=== PATIENT | female | born 1960 | race Caucasian/White ===

== ENCOUNTER 2017-12-12 08:30 | Outpatient (RCR) | payer OTHER, SELFPAY | END 2017-12-25 23:59 | LOC: NS 08:30 | PROVIDERS: Family Provider Family Medicine; PCP Family Medicine; Visit Provider Obstetrics & Gynecology | DX: R63.5 Abnormal weight gain (principal); Z68.32 Body mass index [BMI] 32.0-32.9, adult; Z71.3 Dietary counseling and surveillance | CPT/HCPCS: 97803 ==

== ENCOUNTER 2018-01-16 08:30 | Outpatient (RCR) | payer OTHER, SELFPAY ==
[2017-09-12 09:33] VITALS: BMI 32.4
[2017-09-12 11:21] VITALS: BP 145/79
== END 2018-01-22 23:59 ==
LOC: NS 08:30
PROVIDERS: Family Provider Family Medicine; PCP Family Medicine; Visit Provider Obstetrics & Gynecology
DX: R63.5 Abnormal weight gain (principal); Z68.32 Body mass index [BMI] 32.0-32.9, adult
CPT/HCPCS: 97803

== ENCOUNTER 2018-02-18 11:30 | Outpatient (RCR) | payer OTHER, SELFPAY | END 2018-02-22 23:59 | LOC: NS 11:30 | PROVIDERS: Family Provider Family Medicine; PCP Family Medicine; Visit Provider Obstetrics & Gynecology | DX: R63.5 Abnormal weight gain (principal); Z68.32 Body mass index [BMI] 32.0-32.9, adult; Z71.3 Dietary counseling and surveillance | CPT/HCPCS: 97803 ==

== ENCOUNTER → 2018-02-26 08:56 | Outpatient (CLI) | payer OTHER, SELFPAY ==
--- NOTE | 2018-02-26 08:59 | BI_ITS ---
MAMMOGRAPHY - BILATERAL SCREENING REASON FOR EXAM: Female, 58 years old. Routine annual screening examination. PERTINENT HISTORY: Aunt with breast cancer. TECHNIQUE: Digital bilateral breast alma delia (3D mammographic acquisition) in the CC and MLO projections. 2-D mediolateral oblique (MLO) and craniocaudad (CC) views of both breasts were obtained. CAD: Full Field Digital Mammography with Computer Added Detection was performed. COMPARISON: Comparison is made with prior study dated February 15, 2017 and February 15, 2016. FINDINGS: Breast Composition: The breasts are heterogeneously dense, which may obscure small masses. There are no dominant masses or suspicious calcifications. No other significant abnormalities are identified. There has been no significant change since the prior study. BI/SCREENING MAMM (CAD), BILAT IMPRESSION: Stable bilateral screening mammogram. Yearly follow-up mammogram recommended. (A) ASSESSMENT CATEGORY: BIRADS Category 1: Negative. A letter regarding these results will be sent to the patient by the facility within 30 days. Approximately 10% of breast cancers are not detected by mammography. A normal mammogram should not delay biopsy of a clinically suspicious abnormality. [id number] Electronically Signed: Benny Lewis MD at 11:04 EDT Tel [phone], Service support ,
--- NOTE | 2018-02-26 09:00 | BD_ITS ---
STUDY: DUAL ENERGY X-RAY ABSORPTIOMETRY / DXA REASON FOR EXAM: Female, 58 years old. The patient is postmenopausal. TECHNIQUE: Bone Mineral Density (BMD) measurements of lumbar spine and bilateral hips were obtained. COMPARISON: None. FINDINGS: Lumbar Spine (L1-L4): g/cm2 (1.406) / T-score (1.7) / Z-score (2.8) Findings are suggestive of normal bone density with a low fracture risk. Left Femur Total: g/cm2 (1.012) / T-score (0.0) / Z-score (0.8) Left Femoral Neck: g/cm2 (0.926) / T-score (-0.8) / Z-score (0.3) Right Femur Total: g/cm2 (1.105) / T-score (0.8) / Z-score (1.6) Right Femoral Neck: g/cm2 (0.995) / T-score (-0.3) / Z-score (0.8) BD/Dexa Bone Density Study IMPRESSION: The patient is considered normal as outlined below according to World Alfredo Organization (WHO) criteria with a low fracture risk. Reference Information: The T-score is the number of standard deviations above or below the standard which is normal for young adults at their peak bone mineral density. The World Health Organization (WHO) interprets the T-scores as follows: Above -1 Normal bone density Between -1 and -2.5 Osteopenia Equal to / or below -2.5 Osteoporosis As a practical clinical guideline, osteopenia may be graded as follows: Mild -1 through -1.5 Moderate -1.6 through -2.0 Severe -2.1 through -2.4 The Z-score is the number of standard deviations above or below age-matched controls. A Z-score of less than -1.5 would be considered abnormal. References: 1. NIH Osteoporosis and Related Bone Diseases http://www.osteo.org 2. International Society for Clinical Densitometry http://www.iscd.org 3. National Osteoporosis Foundation http://www.nof.org Electronically Signed: Benny Lewis MD at 11:38 EDT Tel [phone], Service support ,
== END ==
PROVIDERS: Family Provider Family Medicine; PCP Family Medicine; Visit Provider Obstetrics & Gynecology
DX: Z12.31 Encounter for screening mammogram for malignant neoplasm of breast (principal); Z80.3 Family history of malignant neoplasm of breast; Z78.0 Asymptomatic menopausal state
CPT/HCPCS: 77063; 77067; 77080

== ENCOUNTER 2018-03-18 14:30 | Outpatient (RCR) | payer OTHER, SELFPAY | END 2018-03-24 23:59 | LOC: NS 14:30 | PROVIDERS: Family Provider Family Medicine; PCP Family Medicine; Visit Provider Obstetrics & Gynecology | DX: R63.5 Abnormal weight gain (principal); Z68.32 Body mass index [BMI] 32.0-32.9, adult; Z71.3 Dietary counseling and surveillance | CPT/HCPCS: 97803 ==

== ENCOUNTER 2018-04-17 09:30 | Outpatient (RCR) | payer OTHER, SELFPAY | END 2018-04-17 23:59 | LOC: NS 09:30 | PROVIDERS: Family Provider Family Medicine; PCP Family Medicine; Visit Provider Obstetrics & Gynecology | DX: R63.5 Abnormal weight gain (principal); Z68.32 Body mass index [BMI] 32.0-32.9, adult; Z71.3 Dietary counseling and surveillance | CPT/HCPCS: 97803 ==

== ENCOUNTER → 2019-02-26 07:27 | Outpatient (CLI) | payer OTHER, SELFPAY ==
--- NOTE | 2019-02-26 07:29 | BI_ITS ---
MAMMOGRAPHY - BILATERAL SCREENING REASON FOR EXAM: Female, 59 years old. Routine annual screening examination. PERTINENT HISTORY: Aunt with breast cancer. TECHNIQUE: Digital bilateral breast alma delia (3D mammographic acquisition) in the CC and MLO projections. 2-D mediolateral oblique (MLO) and craniocaudad (CC) views of both breasts were obtained. CAD: Full Field Digital Mammography with Computer Added Detection was performed. COMPARISON: Comparison is made with prior study dated February 26, 2018 and February 15, 2017. FINDINGS: Breast Composition: The breasts are heterogeneously dense, which may obscure small masses. There are no dominant masses or suspicious calcifications. There is a 7.9 mm x 8.4 mm well-defined nodule in the deep upper medial aspect of the right breast. Correlation with ultrasound is recommended. No other significant abnormalities are identified. BI/SCREENING MAMM (CAD), BILAT IMPRESSION: 7.9 mm x 8.4 mm well-defined nodule in the deep upper medial aspect of the right breast as described. Correlation with ultrasound is recommended. ASSESSMENT CATEGORY: BIRADS Category 0: Incomplete. Need additional imaging evaluation. A letter regarding these results will be sent to the patient by the facility within 30 days. Approximately 10% of breast cancers are not detected by mammography. A normal mammogram should not delay biopsy of a clinically suspicious abnormality. [id number] Electronically Signed: Benny Lewis, at 9:39 EDT , Service support ,
--- NOTE | 2019-02-26 14:53 | US_ITS ---
STUDY: ULTRASOUND BREAST - RIGHT REASON FOR EXAM: Female, 59 years old. Abnormal screening mammogram. TECHNIQUE: Axial and longitudinal images of the RIGHT breast were performed with a high resolution ultrasound transducer. COMPARISON: Comparison is made with prior mammogram done earlier in the day. FINDINGS: RIGHT Breast: In the upper medial aspect of the right breast was examined by ultrasound. There is homogeneous fibroglandular tissue. No solid or cystic mass lesion is seen. Additional mammographic views will be obtained. US/Breast Limited Unilateral IMPRESSION: Unremarkable sonographic examination. Additional mammographic views will be obtained. ASSESSMENT CATEGORY: BIRADS Category 0: Incomplete. Need additional imaging evaluation. A letter regarding these results will be sent to the patient by the facility within 30 days. Electronically Signed: Benny Lewis, at 9:27 EDT , Service support ,
--- NOTE | 2019-02-26 15:18 | BI_ITS ---
MAMMOGRAPHY - UNILATERAL DIAGNOSTIC: RIGHT BREAST REASON FOR EXAM: Female, 59 years old. Abnormal screening mammogram. PERTINENT HISTORY: Aunt with breast cancer. TECHNIQUE: Compression spot views of the right breast in the craniocaudad and MLO view were obtained. CAD: Full Field Digital Mammography with Computer Added Detection was performed. COMPARISON: Comparison is made with prior study done earlier today. FINDINGS: Breast Composition: The breasts are heterogeneously dense, which may obscure small masses. The questionable nodular density in the right breast is less prominent at this time and most likely represents superimposition of tissue. No other significant abnormalities are identified. BI/DIAG MAMM W/CAD, UNILAT IMPRESSION: Stable unilateral diagnostic mammogram. One year follow-up mammogram recommended. (A) ASSESSMENT CATEGORY: BIRADS Category 2: Benign. A letter regarding these results will be sent to the patient by the facility within 30 days. Approximately 10% of breast cancers are not detected by mammography. A normal mammogram should not delay biopsy of a clinically suspicious abnormality. Electronically Signed: Benny Lewis, at 8:09 EDT , Service support ,
== END ==
PROVIDERS: Family Provider Family Medicine; PCP Family Medicine; Referring Provider Obstetrics & Gynecology; Visit Provider Obstetrics & Gynecology
DX: Z12.31 Encounter for screening mammogram for malignant neoplasm of breast (principal); R92.8 Other abnormal and inconclusive findings on diagnostic imaging of breast; Z80.3 Family history of malignant neoplasm of breast
CPT/HCPCS: 76642; 77063; 77065; 77067

== ENCOUNTER 2019-03-24 06:29 | Day surgery (SDC) | payer OTHER, SELFPAY ==
--- NOTE | 2019-03-23 | GASB_PTH ---
PATIENT: ALDA QUIROGA LOC: EN U#:[id number] AGE/SX: 59/F ROOM: RE03/24/[address]: Dr. Elias Colorado MD : 1960 BED: DIS: 03/24/2019 SPEC #: [id number] RECD: 03/24/19 12:14 STATUS: NANCI CASTILLOPolo #: [id number] FRAN: 03/23/19 00:[address]: Elias Colorado DEPT: SURGICAL PATHOLOGY RECD BY: Grant Davila ENTERED: 03/24/19 12:15 SP TYPE: Gastric Bx OTHR DR: Dr. Breezy Colorado III, MD Tissues: A - Gastric mucous membrane B - Stomach, NOS C - Gastric mucous membrane D - Transverse colon Procedures: PAS Fungus (control) Special Stain Group II Special Stain Group I Surgery Specimen Level IV Alcian Blue/PAS (control) HEADER OPERATION: [place] [place] DIAGNOSIS: Family history of colon, GERD TISSUE SUBMITTED: A - Antrum biopsy for H. pylori and path, B - Biopsy of body of stomach polyp, C - GE junction biopsy, D - Biopsy of mid transverse bump MICROSCOPIC DIAGNOSIS A. Antral biopsy: Mild gastritis. See microscopic description and comment. B. Body of stomach polyp, biopsy: Mild gastritis. See microscopic description and comment. C. GE junction, biopsy: Fragments of gastroesophageal mucosa with focal ulceration, acute and chronic inflammation, reactive epithelial changes and changes consistent with gastroesophageal reflux disease. Intestinal metaplasia (goblet cell metaplasia) is not identified. Special stain for acid fungi is negative for organisms; matched control is appropriate. See comment. D. Mid transverse colon bump, biopsy: Hyperplastic polyp. SJ:ritesh 03/25/19 COMMENT A & B. The results of immunohistochemistry for Helicobacter pylori will be reported separately ([id number]). C. Alcian blue/PAS stain with matched control is used in the evaluation of the specimen. MICROSCOPIC DESCRIPTION Slides are reviewed. A & B. The specimen shows fragments of gastric mucosa with chronic inflammatory cell infiltrates in the lamina propria consisting of lymphocytes and plasma cells, consistent with mild chronic gastritis. GROSS DESCRIPTION A - Received in fixative is one container labeled with the patient's name and designated antrum biopsy. The specimen consists of one irregular fragment of light suarez soft tissue that measures 0.3 x 0.3 x 0.1 cm. The specimen is totally submitted in one cassette. B - Received in fixative is one container labeled with the patient's name and designated biopsy of body of stomach polyp. The specimen consists of one irregular fragment of light suarez soft tissue that measures 0.6 x 0.2 x 0.1 cm. The specimen is totally submitted in one cassette. C - Received in fixative is one container labeled with the patient's name and designated GE junction biopsy. The specimen consists of two irregular fragments of light suarez soft tissue that in aggregate measure 0.5 x 0.3 x 0.1 cm. The specimen is totally submitted in one cassette. D - Received in fixative is one container labeled with the patient's name and designated biopsy of mid transverse bump. The specimen consists of one irregular fragment of light suarez soft tissue that measures 0.3 x 0.3 x 0.1 cm. The specimen is totally submitted in one cassette. / SJ:rg 03/24/19 TC:5 CPT: 91442 x4, 56705, 54920
[2019-03-24] VITALS (7 sets, daily range): BP systolic 95–117; BP diastolic 56–71; PULSE 71–80; RESP 16–18; TEMP 36.1–36.7; O2SAT 93–98; BMI 28.7
--- NOTE | 2019-03-24 07:30 | IMM_PTH ---
PATIENT: ALDA QUIROGA LOC: EN U#:[id number] AGE/SX: 59/F ROOM: RE03/24/[address]: Dr. Elias Colorado MD : 1960 BED: DIS: 03/24/2019 SPEC #: [id number] RECD: 03/24/19 13:12 STATUS: NANCI SALLY #: [id number] FRAN: 03/24/19 07:[address]: Elias Colorado DEPT: IMMUNOHISTOCHEMISTRY RECD BY: Fatoumata Francois ENTERED: 03/24/19 13:12 SP TYPE: IMMUNO OTHR DR: Dr. Breezy Colorado III, MD Tissues: A - Stomach, NOS B - Stomach, NOS Procedures: H Pylori (initial) PHYSICIAN & INSTITUTION [place] [address] SPECIMEN INFORMATION: Tissue Source: A - Antrum biopsy, B - Biopsy of body of stomach polyp Clinical Info: Family history of colon CA, GERD Specimen Number: [id number] A & B CPT code: 93117 x2 METHODOLOGY: Deparaffinized sections of prefer/formalin-fixed tissue or PAP/DQ stained slides are incubated with monoclonal/polyclonal antibodies/oligonucleotide probes. Localization is made via biotin free immunoperoxidase method. Appropriate controls are performed and reacted as expected. Results on target cell population are indicated in the following table: RESULTS: ANTIBODY / CLONE RESULT Block A H Pylori (polyclonal) negative Block B H Pylori (polyclonal) negative These tests were developed and their performance characteristics determined by [facility]. They may not have been cleared or approved by the U.S. Food and Drug Administration. The FDA has determined that such clearance or approval is not necessary. INTERPRETATION: A. Antrum biopsy: Negative for Helicobacter pylori organisms. B. Biopsy of body of stomach polyp: Negative for Helicobacter pylori organisms. SJ:ritesh 03/25/19
--- NOTE | 2019-03-24 08:13 | OP.ENDO_ITS ---
03/24/2019 Breezy Colorado [address] [place] [address] Re : Upper GI endoscopy procedure for Tonya Yepez Dear Dr. Colorado This procedure was performed on Sunday, March 24, 2019. My impressions and recommendations are as follows: Impressions : - Reflux esophagitis. Biopsied. - Z-line variable, 37 cm from the incisors. - Small hiatal hernia. - Erythematous mucosa in the antrum. Biopsied. - A few gastric polyps. Resected and retrieved. - Normal examined duodenum. Recommendations : - Discharge patient to home. - Resume previous diet. - Continue present medications. - Telephone my office for pathology results in 1 week. My findings are described in the full procedure note, which is enclosed. If I can be of further assistance, please feel free to contact me at Doctor phone number(s): Work: . Sincerely, Elias Colorado MD 03/24/2019 8:12:39 AM This report has been signed electronically.
--- NOTE | 2019-03-24 08:16 | OP.ENDO_ITS ---
03/24/2019 Breezy Colorado [address] [place] [address] Re : Colonoscopy procedure for Tonya Yepez Dear Dr. Colorado This procedure was performed on Sunday, March 24, 2019. My impressions and recommendations are as follows: Impressions : - Nodular mucosa in the mid transverse colon. Biopsied. - Diverticulosis in the sigmoid colon. Recommendations : - Discharge patient to home. - Resume previous diet. - Continue present medications. - Repeat colonoscopy in 5 years for surveillance. - Telephone my office for pathology results in 1 week. My findings are described in the full procedure note, which is enclosed. If I can be of further assistance, please feel free to contact me at Doctor phone number(s): Work: . Sincerely, Elias Colorado MD 03/24/2019 8:15:53 AM This report has been signed electronically.
== END 2019-03-24 08:50 | disposition home or self-care (01) ==
LOC: EN 06:30 → AC 06:31
PROVIDERS: Family Provider Family Medicine; PCP Family Medicine; Referring Provider Family Medicine; Visit Provider Surgery
PROC: 0DJD8ZZ Inspection of Lower Intestinal Tract, Via Natural or Artificial Opening Endoscopic (ICD-10-PCS; CPT 45378; principal; 2019-03-24 07:25)
DX: K21.9 Gastro-esophageal reflux disease without esophagitis (principal); K57.30 Diverticulosis of large intestine without perforation or abscess without bleeding; K21.0 Gastro-esophageal reflux disease with esophagitis; K44.9 Diaphragmatic hernia without obstruction or gangrene; K31.7 Polyp of stomach and duodenum; K63.5 Polyp of colon; L98.9 Disorder of the skin and subcutaneous tissue, unspecified; F41.9 Anxiety disorder, unspecified; Z78.0 Asymptomatic menopausal state; Z80.0 Family history of malignant neoplasm of digestive organs
CPT/HCPCS: 43239; 45380; 88305; 88312; 88313; 88342; J7120; J2405

== ENCOUNTER 2019-11-24 07:00 | Outpatient (RCR) | payer OTHER, SELFPAY ==
[2019-03-28 09:37] VITALS: BMI 28.7
--- NOTE | 2019-04-29 17:39 | MASS.EVAL ---
Massage Therapy Evaluation: Date Of Evaluation: 04-15-2019 Referring Physician: Dr. 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 She was seen for a massotherapy evaluation with a diagnosis of chronic neck and back pain. She presents today with neck and back pain. She states that she has a bulging disc in her cervical region. She further explains that at times she will experience tingling in her arms bilaterally and her right leg. She states that her health is very good with no limits in daily activities. OBJECTIVE: Upon examination and palpation I found she had high muscle tension throughout her head, neck and shoulders. Her scalp was rigid. Her suboccipitals were very tight and tender. Her masseter, right side, was very tight. Her cervicals were tight and ropey. Her levators were tight right side greater than left side. Her scalenes were very rigid right side greater than left. Her upper traps and low traps were tight and ropey. Her paraspinals are also rigid and ropey, as well as her low back musculature. Tonya's first treatment consisted of MFR, muscle stripping, PNMT to her cervicals as well as heat pack to loosen muscles. ASSESSMENT: Using various techniques I was able to achieve moderate releases overall. Her right levator was tight post treatment. The patient tolerated deep pressure well and relaxed easily PLAN: I plan to see this patient on an as-needed basis for a total of 10 visits in the year 2019. Ghazal Braun LMT
--- NOTE | 2019-04-29 17:51 | MASS.EVAL_ITS ---
Massage Therapy Evaluation: Date Of Evaluation: 04-15-2019 Referring Physician: Dr. 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 She was seen for a massotherapy evaluation with a diagnosis of chronic neck and back pain. She presents today with neck and back pain. She states that she has a bulging disc in her cervical region. She further explains that at times she will experience tingling in her arms bilaterally and her right leg. She states that her health is very good with no limits in daily activities. OBJECTIVE: Upon examination and palpation I found she had high muscle tension throughout her head, neck and shoulders. Her scalp was rigid. Her suboccipitals were very tight and tender. Her masseter, right side, was very tight. Her cervicals were tight and ropey. Her levators were tight right side greater than left side. Her scalenes were very rigid right side greater than left. Her upper traps and low traps were tight and ropey. Her paraspinals are also rigid and ropey, as well as her low back musculature. Tonya's first treatment consisted of MFR, muscle stripping, PNMT to her cervicals as well as heat pack to loosen muscles. ASSESSMENT: Using various techniques I was able to achieve moderate releases overall. Her right levator was tight post treatment. The patient tolerated deep pressure well and relaxed easily PLAN: I plan to see this patient on an as-needed basis for a total of 10 visits in the year 2019. Ghazal Braun LMT
--- NOTE | 2019-11-24 12:39 | MASS.DISCH ---
Massage Therapy Discharge Summary: Discharge Date: 11/24/2019 Tonya was seen for a massotherapy evaluation on 04/15/2019 with the diagnosis of neck and back pain. She was treated with six sessions of massage therapy consisting of moderate to deep pressure soft tissue techniques, myofascial release and trigger point compression to her cervical, thoracic, lower back, upper extremities and hips. Tonya responded well to the therapy by reporting decreased tension and pain throughout her head, neck, shoulders, lower back and hips. Her goals for therapy were met throughout the treatment sessions. At this time this patient is being discharged from our care at [facility] facility.
== END 2019-11-24 13:05 | disposition home or self-care (01) ==
LOC: MASS 07:00
PROVIDERS: Family Provider Family Medicine; PCP Family Medicine; Referring Provider Family Medicine; Visit Provider Family Medicine
DX: M54.2 Cervicalgia (principal); M54.9 Dorsalgia, unspecified; G89.29 Other chronic pain
CPT/HCPCS: 97124

== ENCOUNTER → 2020-02-26 07:54 | Outpatient (CLI) | payer OTHER, SELFPAY ==
[2020-01-14 07:45] VITALS: BMI 28.7
--- NOTE | 2020-02-26 07:56 | BI_ITS ---
MAMMOGRAPHY - BILATERAL SCREENING REASON FOR EXAM: Female, 60 years old. Routine annual screening examination. PERTINENT HISTORY: Aunt with breast cancer. TECHNIQUE: Digital bilateral breast rayo (3D mammographic acquisition) in the CC and MLO projections. 2-D mediolateral oblique (MLO) and craniocaudad (CC) views of both breasts were obtained. CAD: Full Field Digital Mammography with Computer Added Detection was performed. COMPARISON: Comparison is made with prior examination dated February 26, 2019 and February 26, 2018. FINDINGS: Breast Composition: The breasts are heterogeneously dense, which may obscure small masses. There are no dominant masses or suspicious calcifications. No other significant abnormalities are identified. There has been no significant change since the prior study. BI/SCREEN MAMM (CAD) W/RAYO BILAT IMPRESSION: Stable bilateral screening mammogram. Yearly follow-up mammogram recommended. (A) ASSESSMENT CATEGORY: BIRADS Category 1: Negative. A letter regarding these results will be sent to the patient by the facility within 30 days. Approximately 10% of breast cancers are not detected by mammography. A normal mammogram should not delay biopsy of a clinically suspicious abnormality. [id number] Electronically Signed: Benny Lewis, at 9:24 EDT , Service support ,
== END ==
PROVIDERS: PCP Family Medicine; Referring Provider Obstetrics & Gynecology; Visit Provider Obstetrics & Gynecology
DX: Z12.31 Encounter for screening mammogram for malignant neoplasm of breast (principal)
CPT/HCPCS: 77063; 77067

== ENCOUNTER → 2020-04-07 07:14 | Outpatient (CLI) | payer OTHER, SELFPAY ==
[2020-01-14 07:45] VITALS: BMI 28.7
--- NOTE | 2020-04-07 07:17 | RAD_ITS ---
STUDY: X-RAY - UNILATERAL RIBS ( RIGHT ) WITH CHEST REASON FOR EXAM: Female, 60 years old. Rt chest wall pain, lower anterior w/radiation toward posterior TECHNIQUE - RIBS: 6 view(s) of the ribs. TECHNIQUE - CHEST: PA and lateral views of the chest. COMPARISON: None. FINDINGS - RIBS: Normal visualized ribs without a demonstrated fracture. FINDINGS - CHEST: The lungs are clear and expanded. Scattered calcified granulomas. There is no demonstrated pleural abnormality. Normal size heart. Normal mediastinum and brittney. Normal visualized pulmonary arteries. Normal visualized aortic arch and descending thoracic aorta. Normal visualized thoracic spine. Calcific tendinitis of the right shoulder. There is no demonstrated abnormality of the visualized soft tissue structures of the upper abdomen. RAD/Ribs Uni Min 3V w/PA Chest IMPRESSION: RIBS: Normal x-ray examination of the ribs. Calcific tendinitis of the right shoulder. CHEST: Normal x-ray examination of the chest. Electronically Signed: Benny Lewis, at 8:29 EDT , Service support ,
--- NOTE | 2020-04-07 07:47 | RAD_ITS ---
STUDY: X-RAY CHEST REASON FOR EXAM: Female, 60 years old. Rt chest wall pain, lower anterior w/radiation toward posterior TECHNIQUE: PA and lateral views of the chest. COMPARISON: Comparison is made with prior examination dated July 15, 2012. FINDINGS: The lungs are clear and expanded. Scattered calcified granulomas. There is no demonstrated pleural abnormality. Normal size heart. Normal mediastinum and brittney. Normal visualized pulmonary arteries. Normal visualized aortic arch and descending thoracic aorta. There are degenerative changes of the visualized thoracic spine. Normal visualized ribs, clavicles, and shoulders. There is no demonstrated abnormality of the visualized soft tissue structures of the upper abdomen. RAD/Chest 1 View IMPRESSION: Normal x-ray examination of the chest. Electronically Signed: Benny Lewis, at 8:28 EDT , Service support ,
[2020-04-07 08:07] LABS: Bacteria 0 SEEN /hpf (None Seen); Mucous, Urine 0 SEEN /hpf (<or=2+); Red Blood Cells-Urine 0 SEEN /hpf (0-5); White Blood Cells 0 SEEN /hpf (0-5)
[2020-04-07 08:56] LABS: Color, Urine Yellow (Yellow); Glucose, Dipstick Normal (Normal); Ketone-Dipstick Negative (Negative); Leukocyte Esterase-Dipstick Negative /ul (Negative); Nitrite-Dipstick Negative (Negative); Occult Blood-Urine Negative /ul (Negative); Protein-Dipstick Negative (Negative); Urine Bilirubin Dipstick Negative (Negative); Urine Clarity Sl. Cloudy (Clear); Urine Urobilinogen Normal (Normal)
[2020-04-07 09:08] LABS: Squamous Epithelial Cells - UA 0-5 SEEN /hpf (5-10)
[2020-04-07 09:16] LABS: Vitamin D,25 Hydroxy 49.4 ng/mL
== END ==
PROVIDERS: PCP Family Medicine; Referring Provider Family Medicine; Visit Provider Family Medicine
DX: Z00.00 Encounter for general adult medical examination without abnormal findings (principal); R07.89 Other chest pain; E55.9 Vitamin D deficiency, unspecified
CPT/HCPCS: 71045; 71101; 81001; 82306

== ENCOUNTER → 2020-05-23 08:38 | Outpatient (CLI) | payer OTHER, SELFPAY ==
[2020-01-14 07:45] VITALS: BMI 28.7
--- NOTE | 2020-05-23 08:50 | US_ITS ---
STUDY: ABDOMINAL ULTRASOUND - RIGHT UPPER QUADRANT REASON FOR VISIT: Female, 60 years old RUQ PAIN TECHNIQUE: Ultrasound evaluation of the right upper quadrant was performed with real-time and static belle-scale imaging. TECHNICAL QUALITY: Adequate. COMPARISON: Comparison is made with prior study dated February 27, 2017. FINDINGS: Liver: The liver measures 13.6 cm. There is normal echogenicity of the liver. The bile ducts are within normal limits. There is hepatic color flow. The direction of portal flow is hepatopetal. There is no demonstrated mass lesion. Gallbladder: Normal distended gallbladder. The gallbladder wall measures 2.0 mm. There is a positive sonographic Espinoza''s sign. There is no pericholecystic fluid. There are no gallstones. Common Bile Duct (C.B.D.): The common bile duct measures 2.1 mm. Pancreas: There is nonvisualization of the pancreas due to overlying bowel gas. Right Kidney: Normal size of the right kidney. The right kidney measures 10.5 cm x 4.8 cm x 4.4 cm. Normal renal cortex. The right cortex measures 1.3 cm. There is no demonstrated renal mass or cyst. There is no right hydronephrosis. US/Abdomen Limited IMPRESSION: Positive sonographic Espinoza''s sign. Electronically Signed: Benny Lewis, at 15:32 EDT , Service support ,
== END ==
PROVIDERS: PCP Family Medicine; Referring Provider Family Medicine; Visit Provider Family Medicine
DX: R10.11 Right upper quadrant pain (principal)
CPT/HCPCS: 76705

== ENCOUNTER → 2020-06-01 12:50 | Outpatient (CLI) | payer OTHER, SELFPAY ==
[2020-01-14 07:45] VITALS: BMI 28.7
--- NOTE | 2020-06-01 12:53 | NM_ITS ---
CLINICAL: 60-year-old female with reported history of right upper quadrant abdominal pain and nausea. RADIONUCLIDE HEPATOBILIARY SCINTIGRAPHY COMPARISON: Abdominal ultrasound report 05/23/2020 FINDINGS: Following the intravenous administration of 5.1 mCi of 99m Tc Mebrofenin, hepatobiliary images reveal: 1. Relatively prompt and homogeneous radiopharmaceutical concentration is noted by a normal sized liver. No parenchymal defects are identified. 2. Gallbladder activity is identified at 15 minutes post radiopharmaceutical administration. 3. Small intestinal tract is observed at 30 minutes following tracer injection. 4. Washout of the radiopharmaceutical by the hepatic parenchyma appears qualitatively normal. Cholecystokinin (0.02 ug/kg) was administered intravenously over a 30-minute period. The post CCK gallbladder ejection fraction calculated at 18 minutes following Cholecystokinin administration was noted to be 81.0 % (normal greater than 35%). During 30 minutes of post CCK imaging, there is no scintigraphic evidence of reflux of the radiotracer into the common hepatic duct or refilling of the gallbladder. DC/Hepatobilliary Img w/Pharm Int IMPRESSION: 1. NORMAL 99m Tc Mebrofenin hepatobiliary imaging examination with Cholecystokinin. A. A gallbladder ejection fraction calculated to be greater than 35% following the administration of Cholecystokinin makes the probability of functional hepatobiliary disease (gallbladder and/or sphincter of Oddi dyskinesia) and/or organic hepatobiliary disease (chronic acalculous cholecystitis and/or cystic duct syndrome) to be low. (Sinan Mehta et al, Journal of Nuclear Medicine 32:1695, 1991). Electronically Signed: Aaron Breen DO at 14:59 EDT Tel , Service support ,
== END ==
PROVIDERS: PCP Family Medicine; Referring Provider Surgery; Visit Provider Surgery
DX: R10.11 Right upper quadrant pain (principal)
CPT/HCPCS: 78227; A9537; J2805

== ENCOUNTER → 2020-06-07 07:22 | Outpatient (CLI) | payer OTHER, SELFPAY ==
[2020-06-02 08:46] VITALS: BMI 28.3
--- NOTE | 2020-06-07 07:23 | CT_ITS ---
STUDY: CT ABDOMEN AND PELVIS WITH CONTRAST REASON FOR EXAM: Female, 60 years old. RT SIDE ABD PAIN, NAUSEA, INTERMITTENT FEVERS SINCE MARCH, ABD TENDERNESS WHEN PALPATED, [id number] HAS OVARIES, APPY RADIATION DOSAGE (If Supplied By Facility): CTDIvol = ( 15.92 ) mGy, DLP = ( 909.72 ) mGycm TECHNIQUE: Transaxial images were obtained from the dome of the diaphragm to the symphysis pubis with oral contrast. 100ML ISOVUE 300 AND ORAL CONTRAST was administered. Sagittal and coronal images were reconstructed. Individualized dose optimization techniques were used for this CT. COMPARISON: None. FINDINGS: The visualized lung bases are unremarkable. The visualized portions of the heart are within normal limits. Normal liver. Normal gallbladder and extrahepatic biliary system. Normal spleen. Normal pancreas. Normal bilateral adrenal glands. Normal right kidney. Normal left kidney. Normal visualized stomach. Normal small intestine. There are scattered colonic diverticula consistent with diverticulosis. The appendix is visualized and appears normal. Normal abdominal aorta. Normal inferior vena cava. Normal retroperitoneum. Normal urinary bladder. Bilateral tubal ligation clips are seen. Normal abdominal wall. There are mild degenerative changes of the visualized lumbar spine. CT/Abdomen/Pelvis WITH Contrast IMPRESSION: Scattered colonic diverticula. Electronically Signed: Benny Lewis, at 10:29 EDT , Service support ,
[2020-06-07 07:35] LABS: CREATININE FINGERSTICK 0.6 mg/dL (0.55-1.02); EGFR FINGERSTICK > 60.0000 mL/min (>60)
== END ==
PROVIDERS: PCP Family Medicine; Referring Provider Surgery; Visit Provider Surgery
DX: R10.9 Unspecified abdominal pain (principal)
CPT/HCPCS: 74177; Q9967

== ENCOUNTER → 2020-07-21 08:25 | Outpatient (CLI) | payer OTHER, SELFPAY ==
[2020-06-02 08:46] VITALS: BMI 28.3
--- NOTE | 2020-07-21 08:25 | RAD_ITS ---
STUDY: X-RAY - RIGHT ELBOW REASON FOR EXAM: Female, 60 years old. MEDIAL PAIN. KNI TECHNIQUE: 3 view(s) of the elbow. COMPARISON: None. FINDINGS: Normal visualized humerus, radius and ulna. Normal radiocapitellar and ulnotrochlear articulations. The soft tissue structures are unremarkable. RAD/Elbow min 3 Views IMPRESSION: Normal x-ray examination of the elbow. Electronically Signed: Aaron Hermosillo MD at 9:08 EDT Tel , Service support ,
--- NOTE | 2020-07-21 08:25 | RAD_ITS ---
STUDY: X-RAY - LEFT HAND REASON FOR EXAM: Pain over the metacarpals, no specific injury. TECHNIQUE: 3 view(s) of the hand. COMPARISON: Radiographs of the left wrist 03/02/2013. FINDINGS: Normal radiocarpal articulation. Normal distal radioulnar joint. Normal visualized carpal bones. Normal carpal articulations Normal carpometacarpal articulation of the thumb. Normal second through fifth carpometacarpal joints. Normal metacarpi. Normal metacarpophalangeal joint of the thumb. Normal interphalangeal joint of the thumb. Normal proximal and distal phalanges of the thumb. Normal metacarpophalangeal joints of the second through fifth fingers. There is joint space narrowing of the proximal and distal interphalangeal joints of the second through fifth fingers. Normal phalanges of the second through fifth fingers. The soft tissue structures are unremarkable. RAD/Hand Min 3 Views IMPRESSION: Arthrosis of the interphalangeal joints. Otherwise, unremarkable x-ray examination of the left hand. Electronically Signed: Bryon Ellis MD at 13:43 EDT Tel , Service support ,
== END ==
PROVIDERS: PCP Family Medicine; Referring Provider Orthopaedic Surgery; Visit Provider Orthopaedic Surgery
DX: M25.521 Pain in right elbow (principal); M67.442 Ganglion, left hand
CPT/HCPCS: 73080; 73130

== ENCOUNTER → 2020-08-08 10:13 | Outpatient (CLI) | payer OTHER, SELFPAY ==
[2020-07-21 08:50] VITALS: BMI 28.3
== END ==
PROVIDERS: PCP Family Medicine; Referring Provider Family Medicine; Visit Provider Family Medicine
DX: Z00.00 Encounter for general adult medical examination without abnormal findings (principal)

== ENCOUNTER 2020-08-08 15:05 | Emergency (ER) | payer OTHER, SELFPAY ==
[2020-07-21 08:50] VITALS: BMI 28.3
[2020-08-08 15:06] VITALS: BP 136/101; PULSE 100; RESP 18; TEMP 36.3; O2SAT 96; BMI 30.9
--- NOTE | 2020-08-08 15:19 | ED.VIS.GEN ---
History of Present Illness Chief Complaint: Fall Informant: Patient Narrative: Patient sustained a mechanical fall yesterday, she has some contusions over the right lower extremity and ankle region but is able to ambulate with minimal pain. Her pain is mainly present in those contusions. She also has right paraspinal back pain as well as right clavicle and right sided rib pain. She has no head injury or loss of consciousness she has no midline neck or back pain. She has no other injury. Past Medical History - Allergies and Home Meds Allergies/Adverse Reactions: Allergies benzoin Allergy (Verified 08/08/20 15:05) Other latex Allergy (Verified 08/08/20 15:05) Rash acetaminophen [From Tylenol] Adverse Reaction (Verified 08/08/20 15:05) Other STERI-STRIPS Allergy (Uncoded 03/24/19 07:01) Other Primary Care Physician: Breezy Colorado III, MD [Primary Care Provider] - Past Medical History: None Smoking Status: Never smoker Review of Systems All systems negative except as indicated General: Denies: Chills, Fever Eyes: Denies: Visual changes - bilaterally Cardiovascular: Denies: Chest pain Respiratory: Denies: Dyspnea Gastrointestinal: Denies: Abdominal pain, Nausea, Vomiting Genitourinary: Denies: Dysuria Musculoskeletal: Reports: - - Right lower extremity injuries, right back rib pain, right clavicle pain Skin: Reports: - - Contusions as in HPI Neurological: Denies: Headache, Weakness, Parasthesia Hematologic: Denies: Easy bruising, Easy bleeding Allergy: Denies: Uticaria Physical Exam Vital Signs/Narrative: Vital Signs Temp Pulse Resp BP Pulse Ox 08/08/20 15:06 97.3 F L 100 18 136/101 H 96 General: Well nourished, Well developed Eyes: Perrl ENT: - - no facial injury Neck: Supple Cardiovascular: Regular rate, Regular rhythm Respiratory: No distress, CTA bilaterally, Chest nontender Abdomen: Soft, Nontender, Nondistended Back: - - Some tenderness over the right lower rib area posteriorly. No midline thoracic or lumbar pain Extremities: - - Slight tenderness over the clavicle but no deformity no specific tenderness over the AC joint. She has a contusion below the right knee she has no knee pain and no laxity on stressors, she has a contusion over the distal rivera region which is painful to palpation, no ankle or foot pain. She is able to ambulate well without any problems Skin: Normal color Neurological: Normal Strength, Normal Sensation Psychological: Normal affect Diagnostic/Tx/Re-eval Chest X-Ray - ED: 2 View, Read by ED Physician, Normal, Heart, Lungs, Mediastinum, Bony Structures - Medical Decision Making Patient had an unremarkable chest x-ray. I do not believe there is a need for imaging of the lower extremities, she has contusions without any bony tenderness. I believe she is stable for discharge with reassurance. ED Disposition - Plan for ED Patient: Diagnosis: Fall, Rib contusion, Multiple leg contusions Instructions: ED CONTUSION Rib, ED EXTREMITY CONTUSION Lower Referrals: Breezy Colorado III, MD [Primary Care Provider] -
--- NOTE | 2020-08-08 15:20 | RAD_ITS ---
STUDY: X-RAY CHEST REASON FOR EXAM: Female, 60 years old. Pt fell Saturday, -- constant right knee, ankle, hip, neck, and shoulder pain -- pt c/o headache TECHNIQUE: PA and lateral views of the chest. COMPARISON: Comparison is made with prior study dated 04/07/2020. FINDINGS: The lungs are clear and expanded. There is no demonstrated pleural abnormality. Normal size heart. Normal mediastinum and brittney. Normal visualized pulmonary arteries. Normal visualized aortic arch and descending thoracic aorta. There are diffuse degenerative changes of the visualized thoracic spine. Increased thoracic kyphosis. Normal visualized ribs, clavicles, and shoulders. There is no demonstrated abnormality of the visualized soft tissue structures of the upper abdomen. RAD/Chest PA and Lateral IMPRESSION: No acute abnormality is seen. Electronically Signed: Benny Lewis, at 15:53 EDT , Service support ,
== END 2020-08-08 16:03 | disposition home or self-care (01) ==
LOC: ED 15:45
PROVIDERS: Emergency Provider Emergency Medicine; PCP Family Medicine
DX: S20.211A Contusion of right front wall of thorax, initial encounter (principal); S80.11XA Contusion of right lower leg, initial encounter; M54.9 Dorsalgia, unspecified; W19.XXXA Unspecified fall, initial encounter; Y93.9 Activity, unspecified; Y92.9 Unspecified place or not applicable; Y99.9 Unspecified external cause status
CPT/HCPCS: 71046; 99282

== ENCOUNTER → 2020-08-15 14:37 | Outpatient (CLI) | payer OTHER, SELFPAY ==
[2020-08-08 15:06] VITALS: BMI 30.9
--- NOTE | 2020-08-15 16:20 | RAD_ITS ---
STUDY: X-RAY - RIGHT SHOULDER REASON FOR EXAM: Right shoulder pain, fall 3 days ago. TECHNIQUE: 4 view(s) of the shoulder. COMPARISON: Radiographs 11/26/2013. FINDINGS: There is a small osteophyte of the humeral head without demonstrated joint space narrowing of the glenohumeral articulation. Normal acromioclavicular joint. Normal acromion. Normal humeral head and visualized proximal humerus. The soft tissue structures are unremarkable. Normal visualized pulmonary apex. RAD/Shoulder min 2 Views IMPRESSION: Small osteophyte of the humeral head. Otherwise, unremarkable x-ray examination of the right shoulder. Electronically Signed: Bryon Ellis MD at 8:46 EDT Tel , Service support ,
--- NOTE | 2020-08-15 16:28 | RAD_ITS ---
STUDY: X-RAY - RIGHT KNEE REASON FOR EXAM: Right knee pain, swelling inferior to the patella, fall 3 days ago. TECHNIQUE: 4 view(s) of the knee. COMPARISON: None. FINDINGS: Normal visualized distal femur. Normal visualized proximal tibia and fibula. Normal proximal tibiofibular articulation. Normal medial femorotibial compartment. There is a subchondral cyst in the lateral tibial plateau. Otherwise, unremarkable lateral femorotibial compartment. Normal patellofemoral articulation. There is anterior soft tissue swelling. RAD/Knee 4 or More Views IMPRESSION: Anterior soft tissue swelling. Subchondral cyst in the lateral tibial plateau. Electronically Signed: Bryon Ellis MD at 8:59 EDT Tel , Service support ,
== END ==
PROVIDERS: PCP Family Medicine; Referring Provider Family Medicine; Visit Provider Family Medicine
DX: S40.011A Contusion of right shoulder, initial encounter (principal); S80.01XA Contusion of right knee, initial encounter; W19.XXXA Unspecified fall, initial encounter; Y93.9 Activity, unspecified; Y92.9 Unspecified place or not applicable; Y99.9 Unspecified external cause status
CPT/HCPCS: 73030; 73564

== ENCOUNTER 2020-08-16 07:30 | Outpatient (RCR) | payer OTHER, SELFPAY ==
[2020-07-21 08:50] VITALS: BMI 28.3
--- NOTE | 2020-07-27 09:14 | HP.OTEVAL_ITS ---
Patient's Visit Information ALDA QUIROGA is a 60 year old F, referred to Occupational Therapy by Dr. Willow Bustillos DO, with a diagnosis of right medial epicondylitis, left if ganglion cyst/contusion. Date of Evaluation: 07/27/20 Occupational Therapist: Inocencia Martins, RUBIA/Tristan, CHT - Subjective This 60 year old female was seen for OT eval with dx of right medial epi and left IF ganglion- pt states she has noticed pain started on - after steam cleaning 8 rooms in her home. pt states she woke up the next moring and her elbow was hurting. pt states she has been icing it and attempted to use a compression sports sleeve but it was to long for her- pt states she is trying to use a elbow wrap at night to prevent her from bending her elbow while she is sleeping. pt states she continues to have pain that ranges from 5-10/10 with activity. pt is responsible for all home mtg tasks and carries water to her garden in 5 gallon buckets- pt states she is limited with ADLs and IADLs at this time due to pain. Pts states she smashed her left hand with boards and now has a contusion/ganglion cyst on her left IF. pt would like to know what she can do to decrease pain and return to her PLOF. - ADLs Comments: pt exercises daily with yoga, use of pelaton bike biking 7-15 miles, and wts. she is performing all her gardening as in carring 5 gallon buckets to water her garden. 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 - Pain right elbow 5 Pain Intensity Range: 3, 10 - ROM Elbow: right -20/130 left 0/145 Forearm: right WNL no pain MP: right PIP: right 0/100 left 0/110 DIP: right 0/40 left 0/50 ROM Comments: pt demo with nodule on dorsom of left IF PIPJ - Strength Information Officer: right 50# left 55# Lateral Pinch: right 10# left 12# Tripod Pinch: rigth 14# left 16# - Edema Elbow: right 17cm left 16.5 cm - Sensation Sensation Comments: denies - Goals Goal:: pt will demo a increase in rigth elbow ROM equal to unaffedted by d/c to increase pts ind. with ADLs and IADLS Goal:: pt will report pain no greater than 1/10 with use of right UE with ADLs and IADLs by d/c Goal:: elbow circumference will demo a reduction in measurments indicating a decrease in edema by d/c Goal:: pt will demo understanding of work station ergo. by end of 2nd session - Rehabilitation General Assessment: Pt demo with positive right medial epicondylitis and in need of custom othosis to prevent pts flexion wrist, to decrease pain and allow for healing. currently pt is unable to perform her ADLs an IADl tasks without pain and demo a need for skilled OT services 2-3x week for 4 weeks. today therapist ed. pt on medial epicondylitis, and wrist/elbow activities to avoid to allow for healing. pt demo understanding- today therapist ed. pt on ice, AROM ex of wrist/forearm/ elbow - and to continue moving left IF to allow for healing from contusion. Today therapist nancy. custom wrist orthosis to prevent wrist flex to allow for flexor tendon to heal- therapist ed. pt on precautions/orthosis use and pt demo understanding and ind. doff/donning of the orthosis. Rehabilitation Potential: Good - Anticipated Interventions A/AAROM/PROM, Strengthening, Edema Control, Triggerpoint Release, Modalities, Orthoses, Joint Protection/Energy Conservation, Ergonomic Education - Visit Plan Frequency: 2-3x /Week Duration: 4 Weeks TEXT: Thank you for the opportunity to evaluate your patient. For Medicare and Medicare HMO plans, please review the plan of care and approve it. It will need to be FAXED BACK to us at [phone] for Medicare purposes. Please let me know if there are questions or concerns regarding this plan of care. Physician Signature: Date:
--- NOTE | 2020-07-27 09:16 | HP.OTEVAL ---
Patient's Visit Information ALDA QUIROGA is a 60 year old F, referred to Occupational Therapy by Dr. Willow Bustillos DO, with a diagnosis of right medial epicondylitis, left if ganglion cyst/contusion. Date of Evaluation: 07/27/20 Occupational Therapist: Inocencia Martins, RUBIA/Tristan, CHT - Subjective This 60 year old female was seen for OT eval with dx of right medial epi and left IF ganglion- pt states she has noticed pain started on - after steam cleaning 8 rooms in her home. pt states she woke up the next moring and her elbow was hurting. pt states she has been icing it and attempted to use a compression sports sleeve but it was to long for her- pt states she is trying to use a elbow wrap at night to prevent her from bending her elbow while she is sleeping. pt states she continues to have pain that ranges from 5-10/10 with activity. pt is responsible for all home mtg tasks and carries water to her garden in 5 gallon buckets- pt states she is limited with ADLs and IADLs at this time due to pain. Pts states she smashed her left hand with boards and now has a contusion/ganglion cyst on her left IF. pt would like to know what she can do to decrease pain and return to her PLOF. - ADLs Comments: pt exercises daily with yoga, use of pel[place] bike biking 7-15 miles, and wts. she is performing all her gardening as in carring 5 gallon buckets to water her garden. 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 - Pain right elbow 5 Pain Intensity Range: 3, 10 - ROM Elbow: right -20/130 left 0/145 Forearm: right WNL no pain MP: right PIP: right 0/100 left 0/110 DIP: right 0/40 left 0/50 ROM Comments: pt demo with nodule on dorsom of left IF PIPJ - Strength Cook House Laborer: right 50# left 55# Lateral Pinch: right 10# left 12# Tripod Pinch: rigth 14# left 16# - Edema Elbow: right 17cm left 16.5 cm - Sensation Sensation Comments: denies - Quick DASH-Disab of Arm,Shoulder& Hand Quick DASH Score: 26.6650 - Goals Goal:: pt will demo a increase in rigth elbow ROM equal to unaffedted by d/c to increase pts ind. with ADLs and IADLS Goal:: pt will report pain no greater than 1/10 with use of right UE with ADLs and IADLs by d/c Goal:: elbow circumference will demo a reduction in measurments indicating a decrease in edema by d/c Goal:: pt will demo understanding of work station ergo. by end of 2nd session - Rehabilitation General Assessment: Pt demo with positive right medial epicondylitis and in need of custom othosis to prevent pts flexion wrist, to decrease pain and allow for healing. currently pt is unable to perform her ADLs an IADl tasks without pain and demo a need for skilled OT services 2-3x week for 4 weeks. today therapist ed. pt on medial epicondylitis, and wrist/elbow activities to avoid to allow for healing. pt demo understanding- today therapist ed. pt on ice, AROM ex of wrist/forearm/ elbow - and to continue moving left IF to allow for healing from contusion. Today therapist nnacy. custom wrist orthosis to prevent wrist flex to allow for flexor tendon to heal- therapist ed. pt on precautions/orthosis use and pt demo understanding and ind. doff/donning of the orthosis. Rehabilitation Potential: Good - Anticipated Interventions A/AAROM/PROM, Strengthening, Edema Control, Triggerpoint Release, Modalities, Orthoses, Joint Protection/Energy Conservation, Ergonomic Education - Visit Plan Frequency: 2-3x /Week Duration: 4 Weeks TEXT: Thank you for the opportunity to evaluate your patient. For Medicare and Medicare HMO plans, please review the plan of care and approve it. It will need to be FAXED BACK to us at [phone] for Medicare purposes. Please let me know if there are questions or concerns regarding this plan of care. Physician Signature: Date:
--- NOTE | 2020-10-18 13:20 | HP.OTDCSUM_ITS ---
It has been my pleasure to treat ALDA QUIROGA under orders from Dr. Willow Bustillos, DO, for the diagnosis of right medial epicondylitis, left if ganglion cyst/contusion for a total of 7 visit(s). Please see the following information for a summary of their discharge status. % Improvement: 65 Objective/Function: elbow ext to 0 today. and nodule on medial elbow not as painful. therapist ed. pt that a counter force brace as a tennis elbow brace my help therapist ed. where she would put one if she decided to get one- pt mansoor pompakrishan to wear her wrist brace but work continues to bother her- pt may benefit from return to for further testing due to limited improvments with her symptoms at this time. Patient Goals: Decrease Pain, Use Hand/Wrist/Arm Normally Again Goal:: pt will demo a increase in rigth elbow ROM equal to unaffedted by d/c to increase pts ind. with ADLs and IADLS Goal:: pt will report pain no greater than 1/10 with use of right UE with ADLs and IADLs by d/c Goal:: elbow circumference will demo a reduction in measurments indicating a decrease in edema by d/c Goal:: pt will demo understanding of work station ergo. by end of 2nd session Plan: advise to return to for further testing. cont with US. and into. ask if pt went ahead and got the tennis elbow brace for her medial epi. she would find one If there are questions or concerns regarding this patient's occupational therapy, please fell free to call me at [phone]. Thank you for the referral of this patient. Sincerely, Inocencia Martins, OTR/L, CHT
== END 2020-08-16 19:00 | disposition home or self-care (01) ==
LOC: OT 07:30
PROVIDERS: PCP Family Medicine; Referring Provider Orthopaedic Surgery; Visit Provider Orthopaedic Surgery
DX: M77.01 Medial epicondylitis, right elbow (principal); M67.442 Ganglion, left hand
CPT/HCPCS: 97035; 97140; 97166; 97530

== ENCOUNTER → 2020-08-23 14:45 | Outpatient (CLI) | payer OTHER, SELFPAY ==
[2020-08-08 15:06] VITALS: BMI 30.9
--- NOTE | 2020-08-23 15:38 | CT_ITS ---
STUDY: CT BRAIN WITHOUT CONTRAST REASON FOR EXAM: Female, 60 years old. FELL COUPLE WEEKS AGO. DIZZY WITH NAUSEA. ANOTHER FALL YEST. RADIATION DOSAGE (If Supplied By Facility): CTDIvol = ( 44.99 ) mGy, DLP = ( 829.85 ) mGycm TECHNIQUE: Transaxial CT imaging of the brain was performed without administration of intravenous contrast material. Individualized dose optimization techniques were used for this CT. COMPARISON: Comparison is made with prior study dated 09/24/2013. FINDINGS: Normal soft tissue structures. Normal calvarium. Normal size ventricles and extra-axial spaces for the patient''s age. Normal white matter tracts of the cerebral hemispheres. Stable small focal lacunar infarct in the left basal ganglion. Normal brainstem. Normal cerebellum. There is no intracranial hemorrhage. There are no findings of an acute ischemic infarction. Normal visualized paranasal sinuses. CT/Brain/Head without Contrast IMPRESSION: Stable small old lacunar infarct in the left basal ganglia. Electronically Signed: Benny Lewis, at 15:52 EDT , Service support ,
--- NOTE | 2020-08-23 15:40 | RAD_ITS ---
STUDY: X-RAY - CERVICAL SPINE REASON FOR EXAM: Female, 60 years old. Fall down stairs last night, neck pain TECHNIQUE: 5 view(s) of the cervical spine were obtained. COMPARISON: None FINDINGS: Normal anterior atlantoaxial articulation. Normal odontoid process. Normal cervical lordosis. There is multi-level endplate spondylosis. There is multi-level degenerative disc disease with multilevel disc space narrowing. Normal visualized intervertebral neuroforamina. The soft tissue structures are unremarkable. RAD/Cerv Spine 4 or 5 Views IMPRESSION: Spondylosis and disc space narrowing. Electronically Signed: Benny Lewis, at 16:14 EDT , Service support ,
== END ==
PROVIDERS: PCP Family Medicine; Referring Provider Nurse Practitioner Family; Visit Provider Nurse Practitioner Family
DX: M54.2 Cervicalgia (principal); S09.90XA Unspecified injury of head, initial encounter; W10.9XXA Fall (on) (from) unspecified stairs and steps, initial encounter; R51 Headache
CPT/HCPCS: 70450; 72050

== ENCOUNTER → 2020-11-02 16:19 | Outpatient (CLI) | payer OTHER, SELFPAY ==
--- NOTE | 2020-11-02 16:23 | CT_ITS ---
STUDY: CT CHEST WITHOUT CONTRAST REASON FOR EXAM: Female, 60 years old. LUNG NODULES F/U FROM X-RAY RADIATION DOSAGE (If Supplied By Facility): CTDIvol = ( 12.91 ) mGy, DLP = ( 397.94 ) mGycm TECHNIQUE: Transaxial imaging was performed without the administration of intravenous contrast material. Individualized dose optimization techniques were used for this CT. COMPARISON: Chest x-ray 08/08/2020 FINDINGS: The lungs are normal. There is no demonstrated pleural abnormality. Normal heart and pericardium. Normal mediastinum. Normal hilar regions. Normal unenhanced pulmonary arteries. Normal aorta arch and descending thoracic aorta. Normal osseous structures. There is no demonstrated abnormality of the visualized upper abdomen. CT/Chest without Contrast IMPRESSION: Normal unenhanced CT Chest examination. Electronically Signed: Aaron Hermosillo MD at 16:59 EST Tel , Service support ,
== END ==
PROVIDERS: PCP Family Medicine; Referring Provider Family Medicine; Visit Provider Family Medicine
DX: R91.8 Other nonspecific abnormal finding of lung field (principal)
CPT/HCPCS: 71250

== ENCOUNTER 2020-11-09 16:15 | Outpatient (RCR) | payer OTHER, SELFPAY ==
[2019-03-28 09:37] VITALS: BMI 28.7
[2020-01-14 07:45] VITALS: BMI 28.7
--- NOTE | 2020-01-20 16:17 | MASS.EVAL_ITS ---
Massage Therapy Evaluation: Initial Evaluation Date: 01/19/2020 SUBJECTIVE: Tonya is a 60 year old female who was referred to the [facility] facility for a massotherapy evaluation by Dr Colorado with the diagnosis of neck and back muscle strain. She presents today with the symptoms of pain, stiffness and tension in the neck, mid back and low back. Tonya reports having a past medical history of chronic neck pain and occasional low back pain. She reports that her right side radiates pain into her arm. She has minimal relief with stretching. OBJECTIVE: Upon observation Tonya has some posture issues with her head and shoulders forward from the neutral position in sitting and standing. After examination and palpation, I found Tonya to have high muscle tension with tenderness and myofascial restrictions in her sub occipitals, levator scapulae, trapezius, rhomboids, scalenes, and thoracic paraspinals. Her right side is worse compared to the left side. Her QL?s, lumbar paraspinals, piriformis, glute medius and minimus all were very tight with fascial restrictions, tender points and trigger points. The first treatment consisted of a one hour massage to her upper body with myofascial release, muscle stripping, trigger point compression techniques, and cervical manual traction. ASSESSMENT: I feel that Tonya is a good candidate for massotherapy at this time. She had a favorable response to the first treatment with reduction in her muscle aches, pain and tension. She also had improvement in her cervical flexibility and low back flexibility. PLAN: The plan of care was reviewed with the patient. The patient is to be seen on an as needed basis for a total of ten sessions with the recommendation of once every month for a one hour treatment.
--- NOTE | 2020-11-12 09:48 | DS.PCM_ITS ---
Massage Therapy Discharge Summary: Discharge Date: 11/12/2020 Tonya was seen for a massotherapy evaluation on 01/19/2020 with the diagnosis of neck and back strain. She was treated with seven sessions of massage therapy consisting of deep pressure soft tissue techniques, myofascial release and trigger point compression to her cervical, thoracic, lower back and hips. Tonya responded well to the therapy by reporting decreased tension and pain throughout her neck, shoulders, lower back and hips. Her goals for therapy were met throughout the treatment sessions. At this time this patient is being discharged from our care at [facility] facility.
== END 2020-11-09 19:00 | disposition home or self-care (01) ==
LOC: MASS 16:15
PROVIDERS: Family Provider Family Medicine; PCP Family Medicine; Referring Provider Family Medicine; Visit Provider Family Medicine
DX: S16.1XXD Strain of muscle, fascia and tendon at neck level, subsequent encounter (principal); S39.012D Strain of muscle, fascia and tendon of lower back, subsequent encounter
CPT/HCPCS: 97124

== ENCOUNTER → 2021-02-27 07:15 | Outpatient (CLI) | payer OTHER, SELFPAY ==
--- NOTE | 2021-02-27 07:17 | BI_ITS ---
MAMMOGRAPHY - BILATERAL SCREENING 3-D TOMOSYNTHESIS REASON FOR EXAM: Female, 61 years old. Screening PERTINENT HISTORY: No significant family history. TECHNIQUE: 2-D mammograms and 3-D Tomosynthesis of the breast (s) were performed. CAD was performed. COMPARISON: None. FINDINGS: There are scattered areas of fibroglandular density. In the middle third of the right breast, directly deep to and medial to the nipple, at the 3 o''clock position, there is an oval, circumscribed, isodense mass measuring 11 mm in diameter. BI/SCRN MAMM (CAD)W/RAYO BILAT IMPRESSION: Isodense mass, right breast, as described. ASSESSMENT CATEGORY: BIRADS Category 0: Incomplete, need additional imaging evaluation. FOLLOW UP RECOMMENDATION: Focal compression of the right breast in the CC and MLO orientations, and ultrasound. Approximately 10% of breast cancers are not detected by mammography. A normal mammogram should not delay biopsy of a clinically suspicious abnormality. Electronically Signed: Bartolome Longo MD at 13:05 EDT Tel , Service support ,
== END ==
PROVIDERS: PCP Family Medicine; Referring Provider Student in an Organized Health Care Education/Training Program; Visit Provider Student in an Organized Health Care Education/Training Program
DX: Z12.31 Encounter for screening mammogram for malignant neoplasm of breast (principal)
CPT/HCPCS: 77063; 77067

== ENCOUNTER → 2021-03-03 09:18 | Outpatient (CLI) | payer OTHER, SELFPAY ==
--- NOTE | 2021-03-03 09:23 | US_ITS ---
STUDY: ULTRASOUND BREAST - RIGHT REASON FOR EXAM: Female, 61 years old. Abnormal density on mammogram. TECHNIQUE: Axial and longitudinal images of the RIGHT breast were performed with a high resolution ultrasound transducer. # OF IMAGES: 34 COMPARISON: None. FINDINGS: RIGHT Breast: There is no abnormality in the soft tissues of the breast to correlate with the mammographic abnormality. There is no abnormal soft tissue tissue mass. There is no cyst formation. US/Breast Complete Unilateral IMPRESSION: There is no abnormality in the soft tissues of the breast to correlate with the mammographic abnormality. There is no abnormal soft tissue tissue mass. There is no cyst formation. The described mass in the right breast may represent an intramammary lymph node. A follow-up mammogram in 6 months would be recommended. ASSESSMENT CATEGORY: BIRADS Category 3: Probably Benign - Short-Interval Follow-up Suggested. A letter regarding these results will be sent to the patient by the facility within 30 days. Electronically Signed: Brad Garza MD at 15:34 EDT Tel , Service support ,
--- NOTE | 2021-03-03 09:23 | BI_ITS ---
MAMMOGRAPHY - UNILATERAL DIAGNOSTIC: RIGHT BREAST REASON FOR EXAM: Female, 61 years old. New mass noted on recent screening mammogram PERTINENT HISTORY: Non-contributory. TECHNIQUE: Digital unilateral breast alma delia (3D mammographic acquisition) in the CC and MLO projections. 2-D mediolateral oblique (MLO) and craniocaudad (CC) views of both breasts were obtained. CAD: Full Field Digital Mammography with Computer Added Detection was performed. COMPARISON: 02/27/2021 FINDINGS: Breast Composition: There are scattered areas of fibroglandular density. The previously described mass in the right breast is persistent on spot compression views. Further evaluation by ultrasound is recommended. No other significant abnormalities are identified. BI/DIAG MAMM W/CAD, UNILAT IMPRESSION: Further ultrasonographic evaluation recommended, as described above. (I) ASSESSMENT CATEGORY: BIRADS Category 0: Incomplete. Need additional imaging evaluation. A letter regarding these results will be sent to the patient by the facility within 30 days. Approximately 10% of breast cancers are not detected by mammography. A normal mammogram should not delay biopsy of a clinically suspicious abnormality. Electronically Signed: Brad Garza MD at 15:31 EDT Tel , Service support ,
== END ==
PROVIDERS: PCP Family Medicine; Referring Provider Student in an Organized Health Care Education/Training Program; Visit Provider Student in an Organized Health Care Education/Training Program
DX: R92.8 Other abnormal and inconclusive findings on diagnostic imaging of breast (principal); N63.10 Unspecified lump in the right breast, unspecified quadrant
CPT/HCPCS: 76641; 77065

== ENCOUNTER → 2021-05-12 09:19 | Outpatient (CLI) | payer OTHER, SELFPAY | PROVIDERS: PCP Family Medicine | DX: R06.02 Shortness of breath (principal) | CPT/HCPCS: 93017; 93350; 94060; 94726; 94729 ==

== ENCOUNTER → 2021-05-12 10:01 | Outpatient (CLI) | payer OTHER, SELFPAY ==
--- NOTE | 2021-05-12 10:38 | STE_ITS ---
Reason For Study: PALPS, SOB Stress Results Protocol: Kirk Protocol Maximum Predicted HR: 159 bpm Target HR: 135 bpm % Maximum Predicted HR: 103 % DurationHeart Rate Stage (mm:ss) (bpm) BP Comment BASELINE 111 120/72HAD A PFT APPOINTMENT BEFORE STRESS TEST STAGE 1 3:00 131 142/72 STAGE 2 3:00 146 148/70 STAGE 3 3:00 164 148/70 RECOVERY 126 138/88 Stress Duration: 9:00 mm:ss Maximum Stress HR: 164 bpm Baseline Echocardiogram Findings The estimated ejection fraction is 60 %. post stress EF is 70-75. Stress Echo Wall motion Data Resting WM Intermediate WM Stress WM Resting Wall Motion Wall Motion Stress No regional wall motion No regional wall motion abnormalities noted. abnormalities noted. EKG Data The baseline ECG displays normal sinus rhythm. 0.5 to 1mm horizontal to upsloping ST depression in the inferior and lateral leads. No definite ischemic changes. Symptoms with Stress The patient experinced no chest pain . ECHO/Stress Test Echo w/o Contrast Interpretation Summary The estimated ejection fraction is 60 %. Exercise stress echo is negative for exercise-induced chest pain or EKG or echo cardiographic changes of ischemia. Functional capacity is excellent for age Ordering Physician: ERIC GARZA Referring Physician: ERIC GARZA Performed By: Roseann Sutton, EDGAR, RVT
--- NOTE | 2021-05-12 13:30 | PFT ---
INTRODUCTION: The patient is a 61-year-old female that presents for pulmonary function studies secondary to a diagnosis of shortness of breath. Respiratory therapy reports good patient effort. Bronchodilators were used during testing. INTERPRETATION: Forced expiration spirometry demonstrates no evidence of a large airways obstructive ventilatory defect. There is no significant response to aerosolized bronchodilators. Spirograms are of good quality and plateau normally. Body plethysmography was performed and reveals lung volumes to be within normal limits. Diffusing capacity by single breath CO is also within normal limits. IMPRESSION: Grossly normal pulmonary function studies.
== END ==
PROVIDERS: PCP Family Medicine
DX: R06.02 Shortness of breath (principal); R00.2 Palpitations
CPT/HCPCS: 93017; 93350; 94060; 94726; 94729

== ENCOUNTER → 2021-05-23 08:52 | Outpatient (CLI) | payer OTHER, SELFPAY ==
--- NOTE | 2021-05-23 08:56 | BI_ITS ---
MAMMOGRAPHY - UNILATERAL DIAGNOSTIC: RIGHT BREAST REASON FOR EXAM: Female, 61 years old. Right breast nodular density. PERTINENT HISTORY: Aunts with breast cancer. TECHNIQUE: Digital unilateral breast alma delia (3D mammographic acquisition) in the CC and MLO projections. 2-D mediolateral oblique (MLO) and craniocaudad (CC) views of both breasts were obtained. CAD: Full Field Digital Mammography with Computer Added Detection was performed. COMPARISON: Comparison is made with prior study dated 03/03/2021 and 02/26/2020. FINDINGS: Breast Composition: The breasts are heterogeneously dense, which may obscure small masses. There are no dominant masses or suspicious calcifications. 8.8 mm well-defined nodule with a fatty hilum in the slightly upper medial aspect of the right breast. This most likely represents a lymph node. Correlation with ultrasound is recommended. No other significant abnormalities are identified. BI/DIAG MAMM W/CAD, UNILAT IMPRESSION: Stable 8.8 mm well-defined nodule with a fatty hilum in the slightly upper medial aspect of the right breast. Correlation with ultrasound is recommended. ASSESSMENT CATEGORY: BIRADS Category 0: Incomplete. Need additional imaging evaluation. A letter regarding these results will be sent to the patient by the facility within 30 days. Approximately 10% of breast cancers are not detected by mammography. A normal mammogram should not delay biopsy of a clinically suspicious abnormality. Electronically Signed: Benny Lewis MD at 9:52 EDT , Service support ,
--- NOTE | 2021-05-23 10:09 | US_ITS ---
STUDY: ULTRASOUND BREAST - RIGHT REASON FOR EXAM: Female, 61 years old. Abnormal screening mammogram. TECHNIQUE: Axial and longitudinal images of the RIGHT breast were performed with a high resolution ultrasound transducer. # OF IMAGES: 65 COMPARISON: Comparison is made with prior mammogram done earlier today. FINDINGS: RIGHT Breast: The medial half of the breast was examined by ultrasound. No sonographic abnormality is seen. US/Breast Limited Unilateral IMPRESSION: No sonographic abnormality seen. Routine mammographic follow-up is recommended. ASSESSMENT CATEGORY: BIRADS Category 2: Benign. A letter regarding these results will be sent to the patient by the facility within 30 days. Electronically Signed: Benny Lewis MD at 10:59 EDT , Service support ,
== END ==
PROVIDERS: PCP Family Medicine; Referring Provider Student in an Organized Health Care Education/Training Program; Visit Provider Student in an Organized Health Care Education/Training Program
DX: R92.2 Inconclusive mammogram (principal)
CPT/HCPCS: 76642; 77061; 77065; G0279

== ENCOUNTER 2021-10-16 16:30 | Outpatient (RCR) | payer OTHER, SELFPAY ==
--- NOTE | 2020-12-28 15:23 | MASS.EVAL ---
Massage Therapy Evaluation: Initial Evaluation Date: 12/23/2020 SUBJECTIVE: Tonya is a 60 year old female who was referred to the [facility] for a massotherapy evaluation by Dr. [place] with the diagnosis of chronic back pain. She presents today with the symptoms of pain, stiffness and tension in the neck, right deltiod pain, mid back, low back, and hips. She has a history of tension and pain in her neck, back, and shoulders. She reports having minimal improvement with exercise and stretching over the last few months. OBJECTIVE: Upon observation Tonya has some posture issues with her head and shoulders forward from the neutral position in sitting and standing. After examination and palpation, I found Tonya to have high muscle tension with tenderness and myofascial restrictions in her sub occipitals, levator scapulae, trapezius, rhomboids, scalenes, and thoracic paraspinals. Her QL?s, lumbar paraspinals, piriformis, glute medius and minimus all were very tight with fascial restrictions, tender points and trigger points. The first treatment consisted of a one hour massage to her upper body with myofascial release, muscle stripping, trigger point compression techniques, and cervical manual traction. ASSESSMENT: I feel that Tonya is a good candidate for massotherapy at this time. She had a favorable response to the first treatment with reduction in her muscle aches, pain and tension. She also had improvement in her cervical flexibility and low back flexibility. PLAN: The plan of care was reviewed with the patient. The patient is to be seen on an as needed basis for a total of ten sessions with the recommendation of once every month for a one hour treatment.
--- NOTE | 2021-11-20 13:05 | MASS.DISCH ---
Massage Therapy Discharge Summary: Discharge Date: 11/20/2021 Tonya was seen for a massotherapy evaluation on 12/23/2020 with the diagnosis of Chronic back pain. She was treated with nine sessions of massage therapy consisting of deep pressure soft tissue techniques, myofascial release and trigger point compression to her cervical, thoracic, lower back and hips. Tonya responded well to the therapy by reporting decreased tension and pain throughout her neck, shoulders, lower back, lower extremities and hips. Her goals for therapy were met throughout the treatment sessions. At this time this patient is being discharged from our care at [facility] facility.
== END 2021-10-16 19:00 | disposition home or self-care (01) ==
LOC: MASS 16:30
PROVIDERS: Referring Provider Family Medicine; Visit Provider Family Medicine
DX: M54.5 Low back pain (principal); G89.29 Other chronic pain
CPT/HCPCS: 97124

== ENCOUNTER 2022-02-13 09:16 | Outpatient (CLI) | payer OTHER, SELFPAY ==
--- NOTE | 2022-02-13 09:25 | RAD_ITS ---
EXAM: XR RIGHT FINGERS, 2 OR MORE VIEWS CLINICAL INDICATION: h/o injury and re-injury -- swelling and pain at DIP joint TECHNIQUE: Frontal, lateral and oblique views of the fingers of the right hand. This report was created using [employer] report [employer] technology. COMPARISON: None. FINDINGS: BONES/JOINTS: See below. SOFT TISSUES: There is diffuse articular joint space narrowing of the distal interphalangeal joints of the fifth finger. There is periarticular soft tissue swelling. Lateral projection demonstrates a calcification at the volar aspect of the distal portion of the fifth middle phalanx. This may be degenerative osteophyte. However given the patient''s history is difficult to exclude a fracture. No radiopaque foreign body. RAD/Finger(s) Min 2 Views IMPRESSION: There is diffuse articular joint space narrowing of the distal interphalangeal joints of the fifth finger. There is periarticular soft tissue swelling. Lateral projection demonstrates a calcification at the volar aspect of the distal portion of the fifth middle phalanx. This may be degenerative osteophyte. However given the patient''s history is difficult to exclude a fracture. Electronically Signed: Hector Blackman MD at 16:56 EDT ,
--- NOTE | 2022-02-13 09:27 | RAD_ITS ---
STUDY: X-RAY - LEFT ELBOW REASON FOR EXAM: Female, 62 years old. Medial epicondylitis -- medial epicondyle pain h/o bee sting in olecranon area which is tender and unsure if entire stinger removed TECHNIQUE: 2 view(s) of the elbow. COMPARISON: None. FINDINGS: Normal visualized humerus, radius and ulna. Normal radiocapitellar and ulnotrochlear articulations. The soft tissue structures are unremarkable. RAD/Elbow 2 Views IMPRESSION: Normal x-ray examination of the elbow. Electronically Signed: Benny Lewis MD at 10:39 EDT ,
== END 2022-02-13 23:59 | disposition home or self-care (01) ==
PROVIDERS: PCP Family Medicine; Referring Provider Registered Nurse; Visit Provider Registered Nurse
DX: M77.02 Medial epicondylitis, left elbow (principal); M79.644 Pain in right finger(s)
CPT/HCPCS: 73070; 73140

== ENCOUNTER 2022-02-26 07:53 | Outpatient (CLI) | payer OTHER, SELFPAY ==
--- NOTE | 2022-02-26 07:57 | BI_ITS ---
MAMMOGRAPHY - BILATERAL SCREENING REASON FOR EXAM: Female, 62 years old. Routine annual screening examination. PERTINENT HISTORY: Aunts with breast cancer. TECHNIQUE: Digital bilateral breast rayo (3D mammographic acquisition) in the CC and MLO projections. 2-D mediolateral oblique (MLO) and craniocaudad (CC) views of both breasts were obtained. CAD: Full Field Digital Mammography with Computer Added Detection was performed. COMPARISON: Comparison is made with prior study of 02/27/2021 and 03/03/2021. FINDINGS: Breast Composition: The breasts are heterogeneously dense, which may obscure small masses. There are no dominant masses or suspicious calcifications. No other significant abnormalities are identified. There has been no significant change since the prior study. BI/SCRN MAMM (CAD)W/RAYO BILAT IMPRESSION: Stable bilateral screening mammogram. Yearly follow-up mammogram recommended. (A) ASSESSMENT CATEGORY: BIRADS Category 1: Negative. A letter regarding these results will be sent to the patient by the facility within 30 days. Approximately 10% of breast cancers are not detected by mammography. A normal mammogram should not delay biopsy of a clinically suspicious abnormality. [id number] Electronically Signed: Benny Lewis MD at 8:51 EDT ,
== END 2022-02-26 23:59 | disposition home or self-care (01) ==
LOC: OPBI 07:55
PROVIDERS: PCP Family Medicine; Referring Provider Student in an Organized Health Care Education/Training Program; Visit Provider Student in an Organized Health Care Education/Training Program
DX: Z12.31 Encounter for screening mammogram for malignant neoplasm of breast (principal)
CPT/HCPCS: 77063; 77067

== ENCOUNTER 2022-03-10 16:03 | Emergency (ER) | payer OTHER, SELFPAY ==
[2022-03-10 16:06] VITALS: BP 135/79; PULSE 84; RESP 18; TEMP 36.2; O2SAT 96; BMI 32.1
[2022-03-10] MEDS: 0.9% Normal Saline 1,000 ML 999 ML IV (16:35)
[2022-03-10] MEDS: Meclizine HCl 25 MG Tablet PO (16:36)
[2022-03-10] MEDS: Ondansetron 4 MG/2 ML Vial IV (16:36)
--- NOTE | 2022-03-10 16:56 | EX.ED.DYSGE1 ---
HPI <JULIO CESAR Broussard - Last Filed: 03/10/22 19:00> History of Present Illness Chief Complaint: Dizziness Narrative Narrative: 62-year-old female with PMH of vertigo presents with vertigo that started yesterday morning. She sat up in bed and immediately the room started spinning. She felt nauseous and it is worse with moving her head especially to the left. She laid in her recliner most of the day yesterday thinking it would go away, but when it continued today she came in. She has had a long history of episodic vertigo since 2000 with the last episode in 2017. She does not remember the medication she was taking for previously. She is fairly healthy and only takes [id number] vitamins. She denies headache, fever, chest pain, shortness of breath, or recent illness. PFSH <JULIO CESAR Broussard - Last Filed: 03/10/22 19:00> PFSH Medical History (Updated 03/10/22 @ 18:27 by JULIO CESAR Broussard) Abdominal pain Bilateral headaches Family history of colon cancer in mother GERD (gastroesophageal reflux disease) Peptic ulcer Postprandial nausea Segmental and somatic dysfunction of lumbar region Segmental and somatic dysfunction of pelvic region Segmental and somatic dysfunction of sacral region Skin lesion Ulcer Home Medications multivitamin 1 ea PO DAILY 09/12/17 [History Last Taken Unknown] vitamin B complex 1 ea PO DAILY 09/12/17 [History Last Taken Unknown] naproxen sodium 220 mg capsule 220 mg PO BID PRN 02/17/18 [History Last Taken Unknown] cholecalciferol (vitamin D3) 2,000 unit PO DAILY 03/23/19 [History Last Taken Unknown] omeprazole 20 mg capsule,delayed release 20 mg PO BID 06/02/20 [History Last Taken Unknown] meclizine 25 mg PO 4X/DAY PRN PRN #20 tab 03/10/22 [Rx Last Taken Unknown] ondansetron 4 mg PO Q8H PRN PRN #12 tab 03/10/22 [Rx Last Taken Unknown] Allergy/AdvReac Type Severity Reaction Status Date / Time benzoin Allergy Other Verified 03/10/22 16:09 latex Allergy Rash Verified 03/10/22 16:09 acetaminophen [From Tylenol] AdvReac Other Verified 03/10/22 16:09 STERI-STRIPS Allergy Other Uncoded 03/10/22 16:09 Family History Father Myocardial infarction Heart disease Mother Colon cancer COPD (chronic obstructive pulmonary disease) Heart disease Bleeding disorder hx of blood clots Diabetes Brother Colon cancer Heart disease Hypertension Surgical History History of appendectomy History of arthroplasty of right shoulder History of esophagogastroduodenoscopy (EGD) History of hysterectomy History of tonsillectomy and adenoidectomy Hx of colonoscopy Status post skin flap graft Social History Smoking Status: Never smoker second hand exposure: No alcohol intake: never substance use type: does not use caffeine: Yes what type of physical activity do you participate in: walking and aerobics frequency: 3-4 times per week ROS <JULIO CESAR Broussard - Last Filed: 03/10/22 19:00> ROS ED ROS Narrative Constitutional: Negative for fever, chills, malaise. Eyes: Negative for visual change. ENT: Negative for sore throat, ear pain, rhinorrhea. CVS: Negative for palpitations, chest pain, syncope. Respiratory: Negative for shortness of breath, cough, orthopnea. GI: Positive for nausea, vomiting. Negative for abdominal pain, diarrhea, constipation, melena, hematochezia. : Negative for dysuria, hematuria or frequency. Neuro: Negative for headache, motor/sensory dysfunction. Skin: Negative for rash, abscess, or wound. Musc: Negative for joint pain, swelling, trauma. Heme: Negative for easy bruising, bleeding, lymphadenopathy. EXAM <JULIO CESAR Broussard - Last Filed: 03/10/22 19:00> Physical Exam Narrative Exam Narrative: CONST: Patient sitting in no acute distress. EYES: Normal inspection. PERRLA, EOMI. Horizontal nystagmus when looking to the left. ENT: Normal inspection, moist mucous membranes. NECK: Normal inspection. RESP: No respiratory distress, CTAB. CVS: Regular rate and rhythm, no murmur, no gallop. SKIN: Color normal, no rash, warm, dry, intact. EXTREMITIES: Normal appearance, no pedal edema. NEURO: Oriented x4. Face symmetric, no upper or lower extremity drift, normal [id number] and [id number]. PSYCH: Normal affect. Const Vital Signs: 03/10/22 16:06 03/10/22 16:52 Temperature 97.1 F L Temperature Source Temporal Pulse Rate 84 Respiratory Rate 18 Respiratory Effort Normal Respiratory Pattern Normal Blood Pressure 135/79 H Blood Pressure Mean 97 Pulse Ox 96 Oxygen Delivery Method Room Air <Dr. Cuauhtemoc Meehan DO - Last Filed: 03/10/22 22:26> Physical Exam Const Vital Signs: 03/10/22 16:06 03/10/22 16:52 Temperature 97.1 F L Temperature Source Temporal Pulse Rate 84 Respiratory Rate 18 Respiratory Effort Normal Respiratory Pattern Normal Blood Pressure 135/79 H Blood Pressure Mean 97 Pulse Ox 96 Oxygen Delivery Method Room Air [facility] <JULIO CESAR Broussard - Last Filed: 03/10/22 19:00> [facility] Narrative Medical decision making narrative: Patient presents with vertigo similar to her previous BPPV. She appears well and nontoxic. Afebrile and vital signs within normal limits. On examination she has horizontal nystagmus when looking left and reproducible symptoms when turning her head to the left. She is neurologically intact with NIH of 0. Medical exam unremarkable. Her symptoms are consistent with peripheral vertigo. She was treated symptomatically with IVF, Zofran, and meclizine. She still had nausea and was given Phenergan. She is feeling improved and will be prescribed meclizine and Zofran for home. Diagnosis 1. BPPV <Dr. Cuauhtemoc Meehan, DO - Last Filed: 03/10/22 22:26> [facility] Narrative Medical decision making narrative: Patient presenting with vertiginous symptoms. Has a history of vertigo. No focal neurologic deficits or lateralizing signs or symptoms. She states this feels similar to her previous vertigo symptoms. She was given meclizine and Phenergan and on reevaluation she is improved. I do not believe she needs any imaging or lab work. She is given prescriptions for home. She states that last time she followed up with ENT and he did some Lewis maneuvers. I recommended that she do this again. Patient stable for discharge. Impression: 1 benign positional vertigo Discharge Plan Triage Chief Complaint: Dizziness ED Provider: Dorita Henry Dx/Rx/DC Orders Clinical Impression: Benign paroxysmal positional vertigo Instructions: BPPV Prescriptions: New meclizine 25 mg tablet 25 mg PO 4X/DAY PRN PRN (Reason: Dizziness) Qty: 20 RF: 0 ondansetron 4 mg tablet,disintegrating 4 mg PO Q8H PRN PRN (Reason: Nausea) Qty: 12 RF: 0 No Action naproxen sodium [Aleve] 220 mg capsule 220 mg PO BID PRN (Reason: Pain) RF: 0 omeprazole 20 mg capsule,delayed release(DR/EC) 20 mg PO BID RF: 0 multivitamin 1 EACH tablet 1 ea PO DAILY RF: 0 vitamin B complex 1 EACH capsule 1 ea PO DAILY RF: 0 cholecalciferol (vitamin D3) 2,000 UNIT tablet 2,000 unit PO DAILY RF: 0 Primary Care Provider: Lito Tuttle Referrals: Lito Tuttle MD [Primary Care Provider] - Activity Restrictions/Additional Instructions: Your symptoms are consistent with peripheral vertigo which is caused by your inner ear. I prescribed meclizine for vertigo and Zofran for nausea/vomiting which you can take as needed. Disposition Disposition: Home, Self Care Discharge Date/Time: 03/10/22 19:20
[2022-03-10] MEDS: proMETHazine 25 MG/ML Syringe 12.5 MG IM (18:07)
== END 2022-03-10 19:20 | disposition home or self-care (01) ==
PROVIDERS: Emergency Provider Physician Assistant; PCP Family Medicine; Visit Provider Physician Assistant
DX: H81.10 Benign paroxysmal vertigo, unspecified ear (principal)
CPT/HCPCS: 96361; 96372; 96374; 99284; J7030; A4216; J2405

== ENCOUNTER 2022-04-17 12:47 | Outpatient (RCR) | payer SELFPAY ==
--- NOTE | 2022-04-17 14:08 | HP.PTEVAL ---
Patient's Visit Information ALDA QURIOGA is a 62 year old F referred to Physical Therapy by Dr. Lito Tuttle MD with a diagnosis of Vertigo. Date of Evaluation: 04/17/22 Physical Therapist: JOELLE Ho - Visit Plan Frequency: 1-2x /Week Duration: 2 Months Plan: 1-2 times per week for VOR progression including eye and head movements, vestibular challenges on and off compliant surfaces, walking with head turns with HEP. HEP: sitting looking at a blank wall with smooth pursuit horizontal and vertical and sitting VOR Cx horizontal and vertical - Subjective She started to have vertigo March 10 and went to [facility] ([facility]felt funny in back of head and when rolls over she gets room spinning dizziness. If she lays on her back and rolls to the L side it is worse rolling to the L than roll to the R. It stopped for a little bit and then it came back. This morning she feels dizzy and does not have a steady gait and feels that she walks drunk. Was playing with her dog down on the floor and she started to have room spinning dizziness..... and throwing up last night. She continues to not feel well for hours but the room spinning only lasts less than one minute. It is hard to deal with and concentrate. She thinks that about 5 years ago she had BPPV and Nicholas helped her with that and it feels about the same as it was 5 years ago. - Objective -Hallpike B for dizziness or nystagmus. -Roll test B for dizziness or nystagmus. Smooth pursuit in sitting horizontal X 25 seconds (increase dizziness and off feeling). Smooth pursuit in sitting vertical X 15 seconds (increase dizziness and off feeling). VOR CX Head in sitting with eyes move together both vertical and horizontal X 10 seconds (increase dizziness and stomach queezy and off feeling). CATSIB 103/120. When pt turns 180 degrees she keeps her head in line with her body to turn. Pt is not able to turn her head with walking unless she slows her gait or stops and even then she still gets dizzu. - Balance/Special Test Scores CATSIB Score (Max score 120 seconds): 103 Dizziness Score: 56 - Goals Goal 1:: I HEP Goal Time Frame: 6-8 Weeks Goal 2:: Be able to walk with horizontal and head turns with out getting dizzy or off balance X 60 feet Goal Time Frame: 6-8 Weeks Goal 3:: Be able to complete VOR CX in standing X 60 seconds without LOB or dizziness Goal Time Frame: 6-8 Weeks Goal 4:: Be able to play with her dog on the grass without getting dizzy Goal Time Frame: 6-8 Weeks Goal 5:: Increase CATSIB to 120/120 (103/120 at eval) Goal Time Frame: 6-8 Weeks - Rehabilitation Potential Rehabilitation Potential: Good - Anticipated Interventions Patient/Client Instruction: Educate patient on: Condition, Plan of Care For the Purpose of:: To increase ROM, To improve nutrient delivery to tissue, To improve muscle performance and motor function, To improve ability to perform ADL's, To increase tolerance to activity/condition/position, To improve performance and independence with ADL's, To decrease level of supervision to perform tasks, To improve ability of physical actions for home/community/work/leisure, To improve gait and locomotor functions, To decrease soft tissue restriction, To increase flexibility/ROM, To improve endurance, To improve balance, To improve safety with gait Therapeutic Exercise to Include: Endurance training, Balance training, Coordination, Postural training, Flexibilty training, Gait and locomotor training, Neuromotor development, Passive ROM, Active ROM For the Purpose of:: To decrease pain, To improve nutrient delivery to tissue, To improve muscle performance and motor function, To improve ability to perform ADL's, To increase tolerance to activity/condition/position, To improve performance and independence with ADL's, To decrease level of supervision to perform tasks, To improve ability of physical actions for home/community/work/leisure, To improve gait and locomotor functions, To improve health of tissue, To improve endurance, To improve balance, To improve safety with gait Functional Training to Include: Gait training For the Purpose of:: To improve gait and locomotor functions Thank you for the opportunity to evaluate your patient. For Medicare and Medicare HMO plans, please review the plan of care and approve it. It will need to be FAXED BACK to us at [phone] for Medicare purposes. For Medicare only, by signing this I certify the plan of care. Please let me know if there are questions or concerns regarding this plan of care. Physician Signature: Date:
--- NOTE | 2022-08-20 10:52 | HP.PT.NRP ---
ALDA QUIROGA was seen in my office for initial evaluation on 04/17/22. The following Plan of Care was established for this patient: Initial Frequency: 1-2x /Week Initial Duration: 2 Months Patient/Client Instruction: Educate patient on: Condition, Plan of Care For the Purpose of:: To increase ROM, To improve nutrient delivery to tissue, To improve muscle performance and motor function, To improve ability to perform ADL's, To increase tolerance to activity/condition/position, To improve performance and independence with ADL's, To decrease level of supervision to perform tasks, To improve ability of physical actions for home/community/work/leisure, To improve gait and locomotor functions, To decrease soft tissue restriction, To increase flexibility/ROM, To improve endurance, To improve balance, To improve safety with gait Therapeutic Exercise to Include: Endurance training, Balance training, Coordination, Postural training, Flexibilty training, Gait and locomotor training, Neuromotor development, Passive ROM, Active ROM For the Purpose of:: To decrease pain, To improve nutrient delivery to tissue, To improve muscle performance and motor function, To improve ability to perform ADL's, To increase tolerance to activity/condition/position, To improve performance and independence with ADL's, To decrease level of supervision to perform tasks, To improve ability of physical actions for home/community/work/leisure, To improve gait and locomotor functions, To improve health of tissue, To improve endurance, To improve balance, To improve safety with gait Functional Training to Include: Gait training For the Purpose of:: To improve gait and locomotor functions This patient was last seen in our office 04/17/22. Pertinent comments regarding their Physical therapy will appear below: KP PT as pt did not reschedule after the initial evaluation At this point I will be discontinuing this patient from physical therapy. I would be happy to see this patient again in the future if found appropriate by the physician. Thank you! Phylicia Bruner, MPT Balance/Gait/Functional tests - Balance/Special Test Scores CATSIB Score (Max score 120 seconds): 103 Dizziness Score: 56
== END 2022-04-17 19:00 | disposition home or self-care (01) ==
LOC: PT 12:47
PROVIDERS: PCP Family Medicine; Referring Provider Family Medicine; Visit Provider Family Medicine
DX: R42 Dizziness and giddiness (principal)
CPT/HCPCS: 97162